=== PATIENT | female | born 1990 | race American Indian/Alaskan Native ===

== ENCOUNTER 2018-01-17 11:00 | Outpatient (CLI) | payer OTHER ==
[~2018-01-17 11:00] MED LIST: DURAGESIC50 MCG/HR TD; MUCINEX22 ML NS; SKELAXIN400 MG PO; TAMIFLU45 MG PO; TORADOL60 MG IM
== END 2018-01-17 12:04 | disposition home or self-care (01) ==
LOC: NST 11:00
DX: Z34.83 Encounter for supervision of other normal pregnancy, third trimester (principal)

== ENCOUNTER 2018-01-17 14:15 | Inpatient (IN) | payer OTHER ==
[~2018-01-17] VITALS: Ht 154.9 cm; Wt 77.6 kg
[2018-02-12] MEDS ORDERED: PRENATABS FA T1 EACH PO (18:26)
[2018-02-12] MEDS ORDERED: PNEU16DI2 (18:27)
== END 2018-02-15 08:27 | DRG 775 ==
LOC: LDR 02-08 14:15 → OB/GYN 02-13 18:48
PROC: 4A1HXCZ Monitoring of Products of Conception, Cardiac Rate, External Approach (ICD-10-PCS; 2018-02-12)
PROC: 10D07Z6 Extraction of Products of Conception, Vacuum, Via Natural or Artificial Opening (ICD-10-PCS; principal; 2018-02-13)
PROC: 0W8NXZZ Division of Female Perineum, External Approach (ICD-10-PCS; 2018-02-13)
PROC: 4A033R1 Measurement of Arterial Saturation, Peripheral, Percutaneous Approach (ICD-10-PCS; 2018-02-13)
DX: O77.0 Labor and delivery complicated by meconium in amniotic fluid (principal); O66.5 Attempted application of vacuum extractor and forceps; Z3A.40 40 weeks gestation of pregnancy; Z37.0 Single live birth

== ENCOUNTER 2018-02-05 10:19 | Outpatient (CLI) | payer OTHER | END 2018-02-05 13:13 | disposition home or self-care (01) | LOC: NST 10:19 | DX: Z34.03 Encounter for supervision of normal first pregnancy, third trimester (principal) ==

== ENCOUNTER 2019-01-10 23:03 | Emergency (ER) | payer OTHER ==
[~2019-01-10] VITALS: Ht 154.9 cm; Wt 66.7 kg
[~2019-01-10 23:03] MED LIST changes: +PNEU16DI2; +PRENATABS FA T1 EACH PO
[2019-01-11] MEDS ORDERED: INTESTINEX680 M1 PO (04:27)
[2019-01-11] MEDS ORDERED: ZOFRAN4 MG PO (04:27)
[2019-01-11] MEDS ORDERED: PEPCID40 MG PO (04:27)
== END 2019-01-11 04:35 | disposition home or self-care (01) ==
LOC: ER 23:03
DX: K52.9 Noninfective gastroenteritis and colitis, unspecified (principal)

== ENCOUNTER 2020-04-28 08:45 | Inpatient (IN) | payer OTHER ==
[~2020-04-28] VITALS: Ht 154.9 cm; Wt 3.2 kg
[~2020-04-28 08:45] MED LIST changes: +INTESTINEX680 M1 PO; +PEPCID40 MG PO; +ZOFRAN4 MG PO
[2020-05-01] MEDS ORDERED: KETO10TA2 PO (08:16)
[2020-05-01] MEDS ORDERED: OXYC1TAB9 PO (08:16)
== END 2020-05-01 10:58 | disposition home or self-care (01) | DRG 788 ==
LOC: OB/GYN 21:12 → LDR 21:12 → OB/GYN 04-29 01:25
PROVIDERS: ADMIT Obstetrics & Gynecology; ATTEND Obstetrics & Gynecology
PROC: 4A1HXCZ Monitoring of Products of Conception, Cardiac Rate, External Approach (ICD-10-PCS; 2020-04-28)
PROC: 10D00Z1 Extraction of Products of Conception, Low, Open Approach (ICD-10-PCS; principal; 2020-04-28 23:00)
DX: O82 Encounter for cesarean delivery without indication (principal); Z3A.38 38 weeks gestation of pregnancy; Z37.0 Single live birth; Z22.330 Carrier of Group B streptococcus